=== PATIENT | male | born 1970 | race Caucasian/White ===

== ENCOUNTER 2017-03-22 19:02 | Emergency (ER) | payer SELFPAY ==
[2017-03-22 19:19] VITALS: TEMP 97.7; BMI 34.7
[2017-03-22] MEDS ORDERED: Sodium Chloride 0.9% 1,000 ML IV STA (19:42)
--- NOTE | 2017-03-22 19:45 | ED PDOC ---
Arrival/HPI - General Chief Complaint: Back Pain Time Seen by Provider: 03/22/17 19:42 Historian: Patient - History of Present Illness Narrative History of Present Illness (Text): 03/22/17 19:40 A 46 year old male, whose past medical history includes kidney stones, is presenting to the emergency department with left flank pain that is radiating to the left groin for the past 1 hour. He reports nausea and denies vomiting, fever, shortness of breath, or any other complaints at this time. Time/Duration: 1 hour Symptom Onset: Sudden Symptom Course: Unchanged Activities at Onset: Rest Context: Home Past Medical History - Provider Review Nursing Documentation Reviewed: Yes - Renal Hx Kidney Stones: Yes - Psychiatric Hx Substance Use: No Family/Social History - Physician Review Nursing Documentation Reviewed: Yes Family/Social History: Unknown Family HX Smoking Status: Never Smoked Hx Alcohol Use: No Hx Substance Use: No Allergies/Home Meds Allergies/Adverse Reactions: Allergies No Known Allergies Allergy (Verified 03/22/17 19:19) Home Medications: Home Meds Medication Instructions Recorded Confirmed Cholestrol Med 0 mg PO DAILY 03/22/17 Review of Systems - Physician Review All systems were reviewed & negative as marked: Yes - Review of Systems Constitutional: absent: Fevers Respiratory: absent: SOB Gastrointestinal: Nausea. absent: Vomiting Musculoskeletal: Other (Left flank pain ) Physical Exam - Physical Exam Narrative Physical Exam (Text): Constitutional: No acute distress. Head: Normocephalic. Atraumatic. Eyes: PERRL. ENT: Moist mucous membranes. Neck: Supple. Cardiovascular: Regular rate. Chest: No tenderness. Respiratory: Clear to auscultation bilaterally. GI: Soft. Nontender. Nondistended. Back: Left CVA tenderness. Musculoskeletal: No tenderness or swelling of extremities. Skin: No rash. Neurologic: Alert, no focal deficit. Vital Signs Reviewed: Yes Vital Signs Temp Pulse Resp BP Pulse Ox 03/22/17 21:22 79 16 96 03/22/17 19:14 97.7 F 100 H 18 133/88 98 Temperature: Afebrile Blood Pressure: Normal Pulse: Tachycardic Respiratory Rate: Normal Appearance: Positive for: Well-Appearing, Non-Toxic, Comfortable Pain Distress: None Mental Status: Positive for: Alert and Oriented X 3 Medical Decision Making ED Course and Treatment: 03/22/17 19:40 Impression: A 46 year old male with left flank pain radiating to left groin. Differential Diagnosis included but are not limited to: Plan: -- Abdominal & pelvis CT scan -- Labs -- Toradol, Zofran, IV fluids -- Urinalysis -- Reassess and disposition Progress Notes: 03/22/17 21:42 IMPRESSION: Approximately 6 mm calculus in the distal left ureter just proximal to the ureterovesicular junction. Associated moderate left hydroureteronephrosis with renal enlargement and some mild surrounding stranding. Additional nonobstructing left intrarenal calculi noted. Patient states he will follow up with his own physician in [place]. - Lab Interpretations Lab Results: 03/22/17 19:41 03/22/17 19:41 Lab Results 03/22/17 19:41: Sodium 142, Potassium 3.9, Chloride 103, Carbon Dioxide 26, Anion Gap 17, BUN 17, Creatinine 1.0, Est GFR ( Amer) > 60, Est GFR (Non- Af Amer) > 60, Random Glucose 103, Calcium 9.9, Total Bilirubin 0.6, AST 24, ALT 48, Alkaline Phosphatase 58, Total Protein 7.9, Albumin 4.7, Globulin 3.2, Albumin/Globulin Ratio 1.5 03/22/17 19:41: Urine Color Yellow, Urine Appearance Clear, Urine pH 6.0, Ur Specific [place] >= 1.030, Urine Protein 30 H, Urine Glucose (UA) Negative, Urine Ketones Negative, Urine Blood Large H, Urine Nitrate Negative, Urine Bilirubin Negative, Urine Urobilinogen 0.2, Ur Leukocyte Esterase Negative, Urine RBC Tntc, Urine WBC 5 - 10, Ur Epithelial Cells 1 - 3, Urine Bacteria Small 03/22/17 19:41: WBC 7.2, RBC 4.85, Hgb 15.1, Hct 42.5, MCV 87.6, MCH 31.1, MCHC 35.5, RDW 12.8, Plt Count 256, MPV 10.7, Gran % 47.9 L, Lymph % (Auto) 41.0 H, [place] % (Auto) 7.9 H, Eos % (Auto) 2.8, Baso % (Auto) 0.4, Gran # 3.47, Lymph # 3.0, [place] # 0.6, Eos # 0.2, Baso # 0.03 - RAD Interpretation Radiology Orders: 03/22/17 19:43 ABD & PELVIS W/O PO OR IV CONT [CT] Stat - Medication Orders Current Medication Orders: Discontinued Medications Acetaminophen (Tylenol 325mg Tab) 975 mg PO STAT STA Stop: 03/22/17 21:48 Sodium Chloride (Sodium Chloride 0.9%) 1,000 mls @ 999 mls/hr IV .Q1H1M STA Stop: 03/22/17 20:42 Last Admin: 03/22/17 19:53 Dose: 999 mls/hr Ketorolac Tromethamine (Toradol) 30 mg IVP STAT STA Stop: 03/22/17 19:43 Last Admin: 03/22/17 19:54 Dose: 30 mg Ondansetron HCl (Zofran Inj) 8 mg IVP STAT STA Stop: 03/22/17 19:43 Last Admin: 03/22/17 19:53 Dose: 8 mg - Scribe Statement The provider has reviewed the documentation as recorded by the [place] Olivo Provider Scribe Attestation: All medical record entries made by the Wally[place]cony were at my direction and personally dictated by me. I have reviewed the chart and agree that the record accurately reflects my personal performance of the history, physical exam, medical decision making, and the department course for this patient. I have also personally directed, reviewed, and agree with the discharge instructions and disposition. Disposition/Present on Arrival - Present on Arrival Any Indicators Present on Arrival: No History of DVT/PE: No History of Uncontrolled Diabetes: No Urinary Catheter: No History of Decub. Ulcer: No History Surgical Site Infection Following: None - Disposition Have Diagnosis and Disposition been Completed?: Yes Diagnosis: Kidney stone Disposition: HOME/ ROUTINE Disposition Time: 21:42 Patient Plan: Discharge Patient Problems: Current Active Problems Problem Status Onset Kidney stone Acute Condition: STABLE Discharge Instructions (ExitCare): Kidney Stones (ED) Prescriptions: Ibuprofen [Motrin] 600 mg PO Q6 #25 tab Ondansetron ODT [Zofran ODT] 4 mg PO Q8 #12 odt oxyCODONE/Acetaminophen [Percocet 5/325 mg Tab] 1 tab PO Q4H #20 tab Tamsulosin [Flomax] 0.4 mg PO DAILY #5 cap
[2017-03-22 20:19] LABS: ALB/GLOB RATIO 1.5 (1.1-1.8); ALBUMIN 4.7 g/dL (3.0-4.8); ALT/SGPT 48 U/L (7-56); AST/SGOT 24 U/L (15-59); BLOOD UREA NITROGEN 17 mg/dL (7-21); CALCIUM 9.9 mg/dL (8.4-10.5); GFR AFRICAN-AMERICAN > 60; GFR NON-AFRICAN AMERICAN > 60
[2017-03-22 20:23] LABS: BASO # 0.03 K/mm3 (0.0-2.0); BASO % 0.4 % (0.0-3.0); EOS # 0.2 (0.0-0.7); EOS % 2.8 % (1.5-5.0); GRAN # 3.47 (1.4-6.5); GRAN % 47.9 % (50.0-68.0); HEMOGLOBIN 15.1 gm/dL (14.0-18.0); MEAN CELL VOLUME 87.6 fL (80.0-105.0); MEAN CORPUSCULAR HEMOGLOBIN 31.1 pg (25.0-35.0); MEAN CORPUSCULAR HGB CONC 35.5 g/dl (31.0-37.0); MEAN PLATELET VOLUME 10.7 fl (7.0-11.0); MONO # 0.6 (0.1-0.6); MONO % 7.9 % (1.0-6.0); PLATELET COUNT 256 10^3/uL (120.0-450.0); RBC 4.85 10^6/uL (3.5-6.1); RED CELL DISTRIBUTION WIDTH 12.8 % (11.5-14.5); WHITE BLOOD COUNT 7.2 10^3/ul (4.5-11.0)
[2017-03-22 20:45] LABS: URINE BILIRUBIN NEGATIVE (NEGATIVE); URINE BLOOD LARGE (NEGATIVE); URINE GLUCOSE (UA) NEGATIVE (NEGATIVE); URINE LEUKOCYTE ESTERASE NEGATIVE Leu/uL (NEGATIVE); URINE NITRATE NEGATIVE (NEGATIVE); URINE PROTEIN 30 mg/dL (<30 mg/dL); URINE UROBILINOGEN 0.2 E.U./dL (<1 E.U./dL)
[2017-03-22 20:53] LABS: URINE APPEARANCE CLEAR (CLEAR); URINE COLOR YELLOW (YELLOW)
[2017-03-22 21:23] VITALS: RESP 16
[2017-03-22 21:23] LABS: URINE BACTERIA SMALL (NEG); URINE RBC TNTC /hpf (0-2)
--- NOTE | 2017-03-22 21:35 | CT ---
EXAM: CT Abdomen and Pelvis Without Intravenous Contrast CLINICAL HISTORY: 46 years old, male; Pain; Abdominal pain; Acute; Additional info: Flank pain TECHNIQUE: Axial computed tomography images of the abdomen and pelvis without intravenous contrast. This CT exam was performed using one or more of the following dose reduction techniques: automated exposure control, adjustment of the mA and/or kV according to patient size, and/or use of iterative reconstruction technique. Coronal and sagittal reformatted images were created and reviewed. COMPARISON: No relevant prior studies available. FINDINGS: Atelectasis. Approximately 4 cm hypoattenuating lesion in the right lobe of the liver, incompletely characterized on this study. The unenhanced spleen, pancreas and adrenal glands demonstrate no acute abnormalities. No radiopaque gallstones noted. Ultrasound can provide more sensitive evaluation of the biliary system. Approximately 6 mm calculus in the distal left ureter just proximal to the ureterovesicular junction. Associated moderate left hydroureteronephrosis with renal enlargement and some mild surrounding stranding. Additional nonobstructing left intrarenal calculi noted. Hypoattenuating lesions in the bilateral kidneys, largest is on the right measuring approximately 2.5 cm. Incompletely characterized on this study. Please note evaluation for underlying visceral lesions/abnormalities limited without intravenous contrast. The aorta is normal in caliber. Minimal iliac calcification. Shotty retroperitoneal and mesenteric nodes. Fat containing umbilical and right inguinal hernias. Evaluation of bowel limited without enteric contrast. No small bowel obstruction. Normal-caliber appendix. The left colon is collapsed, limiting its evaluation. No ascites. No free air. IMPRESSION: Approximately 6 mm calculus in the distal left ureter just proximal to the ureterovesicular junction. Associated moderate left hydroureteronephrosis with renal enlargement and some mild surrounding stranding. Additional nonobstructing left intrarenal calculi noted. Hypoattenuating lesions in the liver and bilateral kidneys, limited evaluation on this noncontrast CT. Further evaluation can be performed with ultrasound, CT with contrast or MRI with dedicated protocol. Details as above. Please see additional details/findings as above. Some of the above findings may warrant followup evaluation.
[2017-03-22 22:06] VITALS: BP 151/82; PULSE 83; O2SAT 98
== END 2017-03-22 22:10 | disposition home or self-care (01) ==
LOC: ED 19:02
DX: N20.0 Calculus of kidney (principal)
CPT/HCPCS: 74176; 80053; 81001; 85025; 87086; 96374; 96375; 99283; J1885; J2405; J7040